=== PATIENT | female | born 1985 | race Caucasian/White ===

== ENCOUNTER 2024-01-03 13:08 | Emergency (ER) | payer OTHER ==
[~2024-01-03] VITALS: Ht 177.8 cm; Wt 108.9 kg
[2024-01-03] MEDS ORDERED: TRAZ50 PO (13:22)
[2024-01-03] MEDS ORDERED: ZOLOFT10013 PO (13:22)
[2024-01-03] MEDS ORDERED: BUSPIRONE HCL5 M6 PO (13:23)
[2024-01-03] MEDS ORDERED: PROBIOTIC1 EA14 (13:23)
[2024-01-03] MEDS ORDERED: Vitamin D1000 UNI1 (13:23)
[2024-01-03] MEDS ORDERED: Lactated Ringer's 1,000 ML IV ONE (13:35)
[2024-01-03 13:52] LABS: BASOPHILS ABSOLUTE AUTO 0.04 K/mm3 (0.00-0.23); BASOPHILS PERCENT AUTO 1 % (0-2); EOSINOPHILS ABSOLUTE AUTO 0.12 K/mm3 (0.00-0.68); EOSINOPHILS PERCENT AUTO 2 % (0-6); Hematocrit 37.5 % (33.0-51.0); IMMATURE GRAN ABSOLUTE AUTO 0.02 K/mm3 (0.00-0.10); IMMATURE GRAN PERCENT AUTO 0 % (0-1); LYMPHOCYTES ABSOLUTE AUTO 1.91 K/mm3 (0.84-5.20); LYMPHOCYTES PERCENT AUTO 27 % (21-46); MONOCYTES ABSOLUTE AUTO 0.51 K/mm3 (0.16-1.47); MONOCYTES PERCENT AUTO 7 % (4-13); Mean Corpuscular HGB 28.5 pg (26.0-34.0); Mean Corpuscular Volume 89 fL (80-100); Mean Platelet Volume 9.4 fL (9.1-12.4); NEUTROPHILS ABSOLUTE AUTO 4.51 K/mm3 (1.96-9.15); NEUTROPHILS PERCENT AUTO 63 % (41-73); Platelet Count 236 K/mm3 (150-400); RDW Coefficient Variation 12.8 % (11.7-14.2); RDW Standard Deviation 41.7 fL (35.1-46.3); Red Blood Cell Count 4.21 M/mm3 (3.80-5.20); White Blood Cell Count 7.11 K/mm3 (4.00-11.30)
[2024-01-03] MEDS ORDERED: HYDROmorphone HCl/Pf 1MG SYR IV PRN (14:00)
[2024-01-03] MEDS ORDERED: Ondansetron HCl 2 MG / ML 2ML Vial IV PRN (14:00)
[2024-01-03 14:16] LABS: Albumin, Blood 3.4 g/dL (3.4-5.0); Albumin/Globulin Ratio 0.9 (0.8-1.8); Bilirubin, Total 0.3 mg/dL (0.1-1.0); Bun/Creatinine Ratio 18.9 (12.0-20.0); Calcium, Blood 8.7 mg/dL (8.5-10.1); Creatinine, Blood 0.63 mg/dL (0.40-1.00); Globulin, Blood 3.7 g/dL (2.2-4.0); Potassium, Blood 4.1 mmol/L (3.5-5.5); Total Protein, Blood 7.1 g/dL (6.4-8.2)
[2024-01-03] MEDS ORDERED: RX Prepack 6 Tabs Oxycodone 5mg UD ONE (17:20)
[2024-01-03] MEDS ORDERED: RX Prepack 2 Tabs Ondansetron ODT 4MG UD ONE (17:20)
[2024-01-03] MEDS ORDERED: Percocet 5-3251 EACH PO (17:26)
[2024-01-03] MEDS ORDERED: Ondansetron Odt8 MG MM (17:26)
== END 2024-01-03 17:40 | disposition home or self-care (01) ==
LOC: ER 13:08
PROVIDERS: Emergency Medicine
DX: R19.7 Diarrhea, unspecified (principal); R10.30 Lower abdominal pain, unspecified; Z86.19 Personal history of other infectious and parasitic diseases; Z87.42 Personal history of other diseases of the female genital tract; Z79.899 Other long term (current) drug therapy
CPT/HCPCS: 74177; 80053; 85025; 96361; 96374-59; 99284-25; J2405; J7120; Q9967

== ENCOUNTER → 2024-01-05 | Outpatient (CLI) | payer OTHER ==
[~2024-01-05] MED LIST: BUSPIRONE HCL5 M6 PO; Ondansetron Odt8 MG MM; PROBIOTIC1 EA14; Percocet 5-3251 EACH PO; TRAZ50 PO; Vitamin D1000 UNI1; ZOLOFT10013 PO
[2024-01-05 18:38] LABS: Adenovirus F 40/41 Not Detected (NOT DETECT); Astrovirus Not Detected (NOT DETECT); Campylobacter Sp Not Detected (NOT DETECT); Cryptosporidium Not Detected (NOT DETECT); Cyclospora Cayetanensis Not Detected (NOT DETECT); E. Coli O157 Not Detected (NOT DETECT); Entamoeba Histolytica Not Detected (NOT DETECT); Enteroaggregative E. coli-EAEC Not Detected (NOT DETECT); Enteropathogenic E. coli-EPEC Not Detected (NOT DETECT); Enterotoxigenic E. coli-ETEC Not Detected (NOT DETECT); Giardia Lamblia Not Detected (NOT DETECT); Norovirus GI/GII Not Detected (NOT DETECT); Plesiomonas Shigelloides Not Detected (NOT DETECT); Rotavirus A Not Detected (NOT DETECT); Salmonella Sp Not Detected (NOT DETECT); Sapovirus Not Detected (NOT DETECT); Shiga Toxin-prod E. coli-STEC Not Detected (NOT DETECT); Shigella/Enteroin E. coli-EIEC Not Detected (NOT DETECT); Vibrio Cholerae Not Detected (NOT DETECT); Vibrio Sp Not Detected (NOT DETECT); Yersinia Enterocolitica Not Detected (NOT DETECT)
== END ==
LOC: LAB 12:53 → LAB SHORT 12:53 → LAB FUT 01-03 15:20
PROVIDERS: Emergency Medicine
DX: R19.7 Diarrhea, unspecified (principal)
CPT/HCPCS: 87507

== ENCOUNTER → 2025-02-02 | Outpatient (CLI) | payer OTHER ==
[2025-02-08 15:18] LABS: OVA AND PARASITE,FECAL INTERP Negative (Negative)
== END ==
LOC: LAB 11:23 → LAB SHORT 11:23
PROVIDERS: Nurse Practitioner Family
DX: K52.9 Noninfective gastroenteritis and colitis, unspecified (principal)
CPT/HCPCS: 87015; 87045; 87046; 87177; 87205; 87209; 87899